=== PATIENT | male | born 1995 | race Caucasian/White ===

== ENCOUNTER → 2016-07-10 | Outpatient (CLI) | payer BC ==
--- NOTE | 2016-07-10 14:40 | XR ---
EXAMINATION TYPE: XR chest 2V DATE OF EXAM: 07/10/2016 2:35 PM COMPARISON: NONE TECHNIQUE: PA and lateral views submitted. HISTORY: Cough and congestion. FINDINGS: The lungs are clear and there is no pneumothorax, pleural effusion, or focal pneumonia. IMPRESSION: 1. No acute process.
== END | disposition home or self-care (01) ==
LOC: RADXRMAIN 14:21
PROVIDERS: ATTEND Internal Medicine
DX: R05 Cough (principal); R06.02 Shortness of breath
CPT/HCPCS: 71020

== ENCOUNTER 2021-12-13 16:16 | Emergency (ER) | payer BC ==
[2021-12-13 17:09] VITALS: BP 134/98; PULSE 66; RESP 16; TEMP 98
--- NOTE | 2021-12-13 17:30 | XR ---
EXAMINATION TYPE: XR foot complete RT DATE OF EXAM: 12/13/2021 COMPARISON: NONE HISTORY: Pain TECHNIQUE: 3 views FINDINGS: There is no evidence of fracture nor dislocation. Metatarsals are intact. Joint spaces are normal. The big toe appears intact. IMPRESSION: Negative right foot exam.
--- NOTE | 2021-12-13 17:33 | ED ---
Lower Extremity Injury HPI - General Chief Complaint: Extremity Injury, Lower Stated Complaint: Toe injury Time Seen by Provider: 12/13/21 17:30 Source: patient, RN notes reviewed Mode of arrival: wheelchair Limitations: no limitations - History of Present Illness Initial Comments: This is a 25-year-old male who presents to the emergency department for a right great toe injury. States that he was riding his skateboard yesterday, and he started to stumble and the wheel ended up crushing his toe. The pain has continued to progress and he is having difficulty walking due to the pain. He has tried taking 500mg of Tylenol with little to no relief. Denies any fevers, chills, sore throat, cough, dyspnea, chest pain, palpitations, abdominal pain, nausea, vomiting, diarrhea, back pain, or headaches. MD Complaint: other (right great toe injury) Onset/Timin -: days(s) Place: street/outdoors Worsens With: weight bearing, palpation Context: direct blow - Related Data Previous Rx's Medication Instructions Recorded Ibuprofen [Motrin] 600 mg PO Q6HR PRN #30 tab 12/13/21 Allergies Allergy/AdvReac Type Severity Reaction Status Date / Time No Known Allergies Allergy Verified 12/13/21 17:09 Review of Systems ROS Statement: Those systems with pertinent positive or pertinent negative responses have been documented in the HPI. ROS Other: All systems not noted in ROS Statement are negative. Past Medical History Past Medical History: No Reported History History of Any Multi-Drug Resistant Organisms: None Reported Past Surgical History: No Surgical Hx Reported Past Psychological History: No Psychological Hx Reported Smoking Status: Never smoker Past Alcohol Use History: Daily, Heavy Past Drug Use History: Marijuana General Exam Limitations: no limitations General appearance: alert, in no apparent distress Head exam: Present: atraumatic, normocephalic, normal inspection Respiratory exam: Present: normal lung sounds bilaterally. Absent: respiratory distress, wheezes, rales, rhonchi, stridor Cardiovascular Exam: Present: regular rate, normal rhythm, normal heart sounds. Absent: systolic murmur, diastolic murmur, rubs, gallop, clicks Extremities exam: Present: other (Erythema, ecchymosis, and swelling of the right great toe with a subungual hematoma. ) Neurological exam: Present: alert, oriented X3, CN II-XII intact Psychiatric exam: Present: normal affect, normal mood Course Vital Signs 12/13/21 17:06 Temperature 98 F Pulse Rate 66 Respiratory 16 Rate Blood Pressure 134/98 O2 Sat by Pulse 98 Oximetry Medical Decision Making - Medical Decision Making This is a 25-year-old male who presents to the emergency department for a right great toe injury. XR revealed no acute osseous abnormalities. #11 blade scalpel was used to make a small hole in the toenail to penetrate the subungual hematoma and there was successful drainage of sanguineous fluid. Patient noted relief afterwards. Tetanus status was updated. Instructed him to soak the toe a few times daily for the next several days to reduce infection risk. Postop shoe was provided to avoid putting excess pressure on the toe. Also advised he ice the injury for the first 2 days followed by heat there afterwards. Rx for Ibuprofen 600mg provided. Return precautions reviewed in depth, the patient is instructed to return to the emergency department with any new, worsening, or concerning symptoms. Patient verbalized understanding. This case was discussed in detail with the attending ED physician. Presentation, findings, and treatment plan discussed in detail as well. - Radiology Data Radiology results: report reviewed, image reviewed Disposition Clinical Impression: Pain of right great toe, Subungual hematoma Disposition: HOME SELF-CARE Instructions (If sedation given, give patient instructions): Subungual Hematoma (ED), Post Surgical Shoe (ED) Additional Instructions: Return to the emergency department with any new, worsening, or concerning symptoms. Alternate with ibuprofen and Tylenol as needed for pain relief. Ice the toe for the first 2 days followed by heat there afterwards. Soak the toe in warm water 3-4x daily for 5 days. Prescriptions: Ibuprofen [Motrin] 600 mg PO Q6HR PRN #30 tab PRN Reason: Pain Is patient prescribed a controlled substance at d/c from ED?: No Referrals: None,Stated [Primary Care Provider] - 1-2 days
[2021-12-13] MEDS ORDERED: LIDOCAINE 1% INJ 10MG/ML (5 ML VIAL-PF) SQ ONE (17:47)
[2021-12-13] MEDS ORDERED: IBUPROFEN 800 MG TAB PO STA (18:19)
== END 2021-12-13 18:48 | disposition home or self-care (01) ==
LOC: EC 16:16
DX: S90.211A Contusion of right great toe with damage to nail, initial encounter (principal); Z72.89 Other problems related to lifestyle; F12.90 Cannabis use, unspecified, uncomplicated
CPT/HCPCS: 73630; 99283; J2001